=== PATIENT | female | born 2000 | race Caucasian/White ===

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

== ENCOUNTER 2020-05-28 13:00 | Emergency (ER) | payer MEDICAID ==
[~2020-05-28] VITALS: Ht 162.6 cm; Wt 145.4 kg
[2020-05-28] MEDS ORDERED: LIDOcaine 1% W/epiNEPHrine 1:200,000 10ml vial IJ ONE (13:10)
[2020-05-28] MEDS ORDERED: ondansetron 4mg rapidly disintigrating tab PO ONE (13:25)
[2020-05-28] MEDS ORDERED: morphine 4 MG/ML inj SYRINge IM ONE (13:25)
[2020-05-28] MEDS ORDERED: HYDR-3965 PO (13:27)
[2020-05-28] MEDS ORDERED: CEPH-585 PO (13:27)
[2020-05-28] MEDS ORDERED: HYDROcodone/acetaminophen 5mg/325mg tablet PO ONE (14:05)
[2020-05-28 14:53] VITALS: BP 147/118
== END 2020-05-28 15:03 | disposition home or self-care (01) ==
LOC: ER 13:00
DX: L05.91 Pilonidal cyst without abscess (principal); M62.838 Other muscle spasm; G43.909 Migraine, unspecified, not intractable, without status migrainosus; Z79.2 Long term (current) use of antibiotics
CPT/HCPCS: 10080; 96372; 99283; J2270

== ENCOUNTER 2020-05-30 12:36 | Emergency (ER) | payer MEDICAID ==
[~2020-05-30] VITALS: Ht 162.6 cm; Wt 147.5 kg
[~2020-05-30 12:36] MED LIST: CEPH-585 PO; HYDR-3965 PO
[2020-05-30 13:00] VITALS: BP 141/85
== END 2020-05-30 15:19 | disposition home or self-care (01) ==
LOC: ER 12:37
DX: L05.01 Pilonidal cyst with abscess (principal); Z48.00 Encounter for change or removal of nonsurgical wound dressing; Z79.899 Other long term (current) drug therapy
CPT/HCPCS: 99282

== ENCOUNTER 2020-06-01 15:46 | Emergency (ER) | payer MEDICAID ==
[~2020-06-01] VITALS: Ht 162.6 cm; Wt 145.4 kg
[2020-06-01 16:31] VITALS: BP 131/101
== END 2020-06-01 18:35 | disposition home or self-care (01) ==
LOC: ER 15:47
DX: L05.91 Pilonidal cyst without abscess (principal); G43.909 Migraine, unspecified, not intractable, without status migrainosus; Z79.2 Long term (current) use of antibiotics
CPT/HCPCS: 99281; 99282

== ENCOUNTER 2020-06-06 19:48 | Emergency (ER) | payer MEDICAID ==
[~2020-06-06] VITALS: Ht 162.6 cm; Wt 145.5 kg
[2020-06-06 19:50] VITALS: BP 149/96
== END 2020-06-06 21:30 | disposition home or self-care (01) ==
LOC: ER 19:48
DX: Z48.01 Encounter for change or removal of surgical wound dressing (principal); G43.909 Migraine, unspecified, not intractable, without status migrainosus; Z79.899 Other long term (current) drug therapy
CPT/HCPCS: 99281

== ENCOUNTER 2020-10-30 13:15 | Emergency (ER) | payer MEDICAID ==
[~2020-10-30] VITALS: Ht 162.6 cm; Wt 136.4 kg
[2020-10-30 13:42] VITALS: BP 151/102
[2020-10-30 14:12] LABS: BASOPHILS % (AUTO) 0.4 % (0-1); EOSINOPHILS # (AUTO) 0.2 X10'3 (0-0.9); EOSINOPHILS % (AUTO) 1.7 % (0-6); HEMATOCRIT 44.5 % (35.0-45.0); HEMOGLOBIN 14.7 g/dl (12.0-16.0); LYMPHOCYTES # (AUTO) 2.9 X10'3 (1.1-4.8); LYMPHOCYTES % (AUTO) 26.9 % (21-51); MEAN CORPUSCULAR HGB CONC 33.1 g/dL (33.0-36.5); MEAN CORPUSCULAR VOLUME 87.6 FL (78-98); MEAN PLATELET VOLUME 8.2 FL (7.4-10.4); MONOCYTES # (AUTO) 0.7 X10'3 (0-0.9); MONOCYTES % (AUTO) 6.8 % (2-12); NEUTROPHILS % (AUTO) 64.2 % (42-75); PLATELET COUNT 281 X10'3 (140-440); RED BLOOD COUNT 5.07 X10'6 (4.20-5.60); RED CELL DISTRIBUTION WIDTH 14.4 % (11.5-14.5)
[2020-10-30 14:22] LABS: ALANINE AMINOTRANSFERASE 19 U/L (12-78); ALBUMIN 3.7 G/DL (3.4-5.0); ALBUMIN/GLOBULIN RATIO 0.8 (1.1-1.5); ALKALINE PHOSPHATASE 126 IU/L (46-116); ANION GAP 9 (8-16); ASPARTATE AMINO TRANSFERASE 18 U/L (10-37); BILIRUBIN,TOTAL 0.3 MG/DL (0.1-1.0); BLOOD UREA NITROGEN 11 MG/DL (7-18); BUN/CREATININE RATIO 14.5 (6.6-38.0); CALCIUM 8.6 MG/DL (8.5-10.1); CHLORIDE 106 MMOL/L (99-107); CREATININE 0.76 MG/DL (0.40-0.90); GLUCOSE 105 MG/DL (70-104); POTASSIUM 3.6 MMOL/L (3.5-5.1); SODIUM 140 MMOL/L (135-145); TOTAL CARBON DIOXIDE 25.5 MMOL/L (24-32); TOTAL PROTEIN 8.2 G/DL (6.4-8.2); eGFR > 90 ML/MIN
== END 2020-10-30 19:55 | disposition home or self-care (01) ==
LOC: ER 13:15
DX: R07.81 Pleurodynia (principal); G43.909 Migraine, unspecified, not intractable, without status migrainosus
CPT/HCPCS: 36415; 71045; 80053; 83880; 84484; 85025; 93005; 99285

== ENCOUNTER 2020-12-13 16:29 | Emergency (ER) | payer MEDICAID ==
[~2020-12-13] VITALS: Ht 162.6 cm; Wt 136.0 kg
[2020-12-13 17:52] VITALS: BP 135/115
== END 2020-12-13 18:40 | disposition home or self-care (01) ==
LOC: ER 16:29
DX: U07.1 COVID-19 (principal); R06.00 Dyspnea, unspecified
CPT/HCPCS: 71045; 99283